=== PATIENT | male | born 1960 | race American Indian/Alaskan Native ===

== ENCOUNTER 2017-07-24 17:47 | Emergency (ER) | payer SELFPAY ==
[2017-07-24 17:52] VITALS: TEMP 98.2
--- NOTE | 2017-07-24 18:08 | ED PDOC ---
Arrival/HPI - General Chief Complaint: Lower Extremity Problem/Injury Time Seen by Provider: 07/24/17 18:00 Historian: Patient - History of Present Illness Narrative History of Present Illness (Text): 07/24/17 18:07 57 yo M c/o pain to the R 2nd digit after "banging it." Otherwise: (-) other injury, (-) numbness. Patient has no additional complaints. Past Medical History - Provider Review Nursing Documentation Reviewed: Yes - Infectious Disease Hx of Infectious Diseases: None - Psychiatric Hx Substance Use: No - Anesthesia Hx Anesthesia: No Family/Social History - Physician Review Nursing Documentation Reviewed: Yes Family/Social History: Unknown Family HX Smoking Status: Never Smoked Hx Alcohol Use: No Hx Substance Use: No Allergies/Home Meds Allergies/Adverse Reactions: Allergies No Known Allergies Allergy (Verified 07/24/17 17:49) Review of Systems - Review of Systems Constitutional: Normal. absent: Fatigue, Weight Change, Fevers Musculoskeletal: Normal, Arthralgias. absent: Back Pain, Neck Pain Skin: Normal. absent: Rash, Pruritis, Skin Lesions Physical Exam - Physical Exam Narrative Physical Exam (Text): 07/24/17 18:06 GENERAL APPEARANCE: Patient is awake, alert, oriented x 3, in no acute distress. SKIN: Warm, dry, (-) skin leasions or rashes. LOWER EXTREMITY: (+) Tenderness, (-) swelling, (-) ecchymosis of right second toe, (-) crepitus, (-) deformity. Tendon function intact. (-) distal neurovascular deficit. +2 point discrimination. Remainder of foot, digits and ankle: (-) injury except. Vital Signs Temp Pulse Resp BP Pulse Ox 07/24/17 17:49 98.2 F 71 18 151/80 H 99 Medical Decision Making ED Course and Treatment: 07/24/17 18:05 57 yo M c/o pain to the R 2nd digit after "banging it." Plan : - XR R foot XR right foot: (+) fracture of the proximal R 2nd and 3rd phalanx, no dislocation, as read by PA Patient advised that official radiology read of XR is still pending and will call the patient if there is any discrepancy within 24 hours. XR results d/w the patient. Toe taping applied. Advised to follow up with primary care physician in 1-2 days without fail. Return to the emergency room at any time for any new or worsening symptoms. Patient states he fully agrees with and understands discharge instructions. States that he agrees with the plan and disposition. Verbalized and repeated discharge instructions and plan. I have given the patient opportunity to ask any additional questions. - RAD Interpretation Radiology Orders: 07/24/17 18:04 FOOT RIGHT 3 VIEWS ROUTINE [RAD] Stat - PA / APPLICATION SUPPORT CONSULTANT / Resident Statement MD/DO has reviewed & agrees with the documentation as recorded. Disposition/Present on Arrival - Present on Arrival Any Indicators Present on Arrival: No History of DVT/PE: No History of Uncontrolled Diabetes: No Urinary Catheter: No History of Decub. Ulcer: No History Surgical Site Infection Following: None - Disposition Have Diagnosis and Disposition been Completed?: Yes Diagnosis: Toe fracture, right Disposition: HOME/ ROUTINE Disposition Time: 18:30 Patient Plan: Discharge Condition: STABLE Discharge Instructions (ExitCare): Toe Fracture (ED) Print Language: ANDORRAN Additional Instructions: Thank you for letting us take care of you today. You were treated for R 2nd and 3rd toe fracture. The emergency medical care you received today was directed at your acute symptoms. If you were prescribed any medication, please fill it and take as directed. It may take several days for your symptoms to resolve. Return to the Emergency Department if your symptoms worsen, do not improve, or if you have any other problems. Please pantograph setter in 2 days for re-evaluation and follow up. Bring any paperwork you were given at discharge with you along with any medications you are taking to your follow up visit. Our treatment cannot replace ongoing medical care by a primary care provider (PCP) outside of the emergency department. Thank you for allowing the [facility] team to be part of your care today. If you had an X-Ray : A Radiologist will review the ED reading if any change in treatment is needed we will contact you. Prescriptions: Meloxicam [Mobic] 15 mg PO DAILY PRN #30 tab PRN Reason: Pain, Moderate (4-7) Referrals: Romelia Gold, [Primary Care Provider] - Follow up with primary Forms: [facility] [place] [facility] ([place])
[2017-07-24 18:53] VITALS: BP 147/82; PULSE 67; RESP 16; O2SAT 100
--- NOTE | 2017-07-25 10:32 | RAD ---
PROCEDURE: Right Foot Radiographs. HISTORY: pain COMPARISON: None. FINDINGS: BONES: There is a comminuted fracture of the shaft of the 2nd proximal phalanx. There is a transverse fracture through the base of the 3rd proximal phalanx JOINTS: Normal. SOFT TISSUES: Normal. OTHER FINDINGS: None. IMPRESSION: There is a comminuted fracture of the shaft of the 2nd proximal phalanx. There is a transverse fracture through the base of the 3rd proximal phalanx
== END 2017-07-24 18:48 | disposition home or self-care (01) ==
LOC: ED 17:47
DX: S92.511A Displaced fracture of proximal phalanx of right lesser toe(s), initial encounter for closed fracture (principal); W22.8XXA Striking against or struck by other objects, initial encounter; Y93.89 Activity, other specified; Y92.89 Other specified places as the place of occurrence of the external cause